=== PATIENT | female | born 1950 | race Caucasian/White ===

== ENCOUNTER → 2018-11-18 | Outpatient (CLI) | payer MEDICARE, OTHER, SELFPAY ==
--- NOTE | 2018-11-18 09:51 | CDU_ITS ---
Reason For Study: Stenosis Rt. Velocities/BP Lt. Velocities/BP Prox CCA 100/18 cm/sec. Prox CCA 123/24 cm/sec. Mid CCA 91/23 cm/sec. Mid CCA 105/29 cm/sec. Dist CCA 70/19 cm/sec. Dist CCA 81/22 cm/sec. Prox ICA 142/45 cm/sec. Prox ICA 94/22 cm/sec. Mid ICA 130/39 cm/sec. Mid ICA 129/48 cm/sec. Dist ICA 131/41 cm/sec. Dist ICA 132/39 cm/sec. Rt. ICA/CCA = 1.56. Lt. ICA/CCA = 1.3. Prox ECA 126/20 cm/sec. Prox ECA 156/13 cm/sec. Rt. Vert. 21/9 cm/sec. Lt. Vert. 118/34 cm/sec. Right Extracranial There is heterogeneous, irregular atherosclerotic plaque noted in the right common carotid artery. There is heterogeneous, irregular atherosclerotic plaque noted in the right internal carotid artery. There is no significant atherosclerotic plaque noted in the right external carotid artery. Antegrade flow is noted in the right vertebral artery. Left Extracranial There is heterogeneous, smooth atherosclerotic plaque noted in the left common carotid artery. There is heterogeneous, irregular atherosclerotic plaque noted in the left internal carotid artery. There is intimal thickening but no significant atherosclerotic plaque noted in the left external carotid artery. Antegrade flow is noted in the left vertebral artery. Procedure Carotid Duplex 52122. Exam performed in department. Interpretation Summary Moderate (50-69%) stenosis right extracranial internal carotid. Moderate (50-69%) stenosis left extracranial internal carotid. Flow within the vertebral arteries is antegrade bilaterally. Ordering Physician: Alejandro Hudson Referring Physician: Scott Jensen Performed By: Shantel Bae, BOUBACAR, RVT
== END | disposition home or self-care (01) ==
PROVIDERS: Family Provider Internal Medicine; PCP Internal Medicine; Referring Provider Surgery Vascular Surgery; Visit Provider Surgery Vascular Surgery
DX: I65.23 Occlusion and stenosis of bilateral carotid arteries (principal); Z85.828 Personal history of other malignant neoplasm of skin; E07.9 Disorder of thyroid, unspecified; E78.00 Pure hypercholesterolemia, unspecified
CPT/HCPCS: 93880